=== PATIENT | male | born 1985 | race American Indian/Alaskan Native ===

== ENCOUNTER 2021-08-22 11:32 | Emergency (ER) | payer OTHER ==
[2021-08-22] MEDS ORDERED: CYCLOBENZAPRINE 10 MG TAB PO ONE (16:33)
[2021-08-22] MEDS ORDERED: KETOROLAC 10 MG TAB PO ONE (16:33)
[2021-08-22] MEDS ORDERED: ACETAMINOPHEN W/CODEINE 300-30 MG TAB PO ONE (16:33)
[2021-08-22] MEDS ORDERED: TETANUS,DIPH,PERTUSS(ACELL) VACCINE 0.5 ML SYRINGE IM ONE (16:33)
--- NOTE | 2021-08-22 17:22 | XRay Report ---
CHEST 2 VIEWS INDICATION / CLINICAL INFORMATION: chest pain. COMPARISON: None available. FINDINGS: SUPPORT DEVICES: None. HEART / MEDIASTINUM: No significant abnormality. LUNGS / PLEURA: No significant pulmonary or pleural abnormality. No pneumothorax. ADDITIONAL FINDINGS: No significant additional findings. IMPRESSION: 1. No acute findings. Signer Name: Corey Bardales MD Signed: 08/22/2021 5:18 PM Workstation Name: [facility] [id number]
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
[2021-08-22 18:14] VITALS: BP 126/69
== END 2021-08-22 18:11 | disposition home or self-care (01) ==
LOC: ED 11:32
DX: S80.811A Abrasion, right lower leg, initial encounter (principal); S80.812A Abrasion, left lower leg, initial encounter; M54.2 Cervicalgia; R07.89 Other chest pain; V87.7XXA Person injured in collision between other specified motor vehicles (traffic), initial encounter; Y93.89 Activity, other specified; Y92.488 Other paved roadways as the place of occurrence of the external cause; Y99.8 Other external cause status
CPT/HCPCS: 71046; 90471; 90715; 99283